=== PATIENT | male | born 1970 | race Caucasian/White ===

== ENCOUNTER 2018-09-27 09:03 | Emergency (ER) | payer SELFPAY ==
[~2018-09-27] VITALS: Ht 167.6 cm; Wt 93.9 kg
--- NOTE | 2018-09-27 09:19 | NUR ---
PT AMBULATES TO BED 10
[2018-09-27 09:20] VITALS: BP 144/88
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
--- NOTE | 2018-09-27 09:40 | NUR ---
Patient being evaluated by physician at bedside.
--- NOTE | 2018-09-27 09:42 | NUR ---
ER MD DONISOR EVALUATING PATIENT AT THIS TIME.
[2018-09-27] MEDS ORDERED: BACITRACIN OINT 500 UNITS/GM PKT TP ONE (09:50)
[2018-09-27 10:11] VITALS: BP 140/84
--- NOTE | 2018-09-27 10:11 | NUR ---
Patient discharged with v/s stable. Written and verbal after care instructions given and explained. Patient alert, oriented and verbalized understanding of instructions. Ambulatory with steady gait. All questions addressed prior to discharge. ID band removed. Patient advised to follow up with PMD. Rx of LOTRIMIN 1% TOPICAL CREAM, MOTRIN 800MG, MUPORICIN 2% TOPICAL given. Patient educated on indication of medication including possible reaction and side effects. Opportunity to ask questions provided and answered.
== END 2018-09-27 10:11 | disposition home or self-care (01) ==
LOC: MED 09:03
DX: B35.3 Tinea pedis (principal); T43.625A Adverse effect of amphetamines, initial encounter; L03.116 Cellulitis of left lower limb; R51 Headache; G44.40 Drug-induced headache, not elsewhere classified, not intractable; R03.0 Elevated blood-pressure reading, without diagnosis of hypertension; F17.200 Nicotine dependence, unspecified, uncomplicated; Y92.89 Other specified places as the place of occurrence of the external cause
CPT/HCPCS: 99283

== ENCOUNTER 2020-01-09 08:11 | Emergency (ER) | payer OTHER ==
[~2020-01-09] VITALS: Ht 167.6 cm; Wt 81.6 kg
[2020-01-09 08:14] VITALS: BP 160/82
--- NOTE | 2020-01-09 08:32 | NUR ---
49 YO M C/O NON-PRODUCTIVE COUGH, SORE THROAT AND UPPER BACK PAIN X 2 DAYS. PT STATES 5/10 PRESSURE-LIKE BACK PAIN AGGRAVATED BY COUGHING. NO MEDS TAKEN. DENIES N/V/D, FEVER. VSS. PT WITH COARSE BREATH SOUNDS ON ALL LUNG GODDARD. PT POSITIONED IN BED COMFORTABLY. ERMD AWARE OF PT STATUS. DENIED PMH NO MEDS TAKEN NKA
--- NOTE | 2020-01-09 08:38 | NUR ---
Dr. Benitez is evaluating the patient at bedside.
[2020-01-09] MEDS ORDERED: predniSONE 20 MG TAB PO ONE (08:45)
[2020-01-09] MEDS ORDERED: ALBUTEROL SULFATE/IPRATROPIU 3 ML SOL IH ONE (08:45)
--- NOTE | 2020-01-09 09:01 | NUR ---
Breathing treatment administered by respiratory therapist at bedside.
[2020-01-09 10:23] VITALS: BP 160/82
--- NOTE | 2020-01-09 10:24 | NUR ---
Patient discharged with v/s stable. Written and verbal after care instructions given and explained. Patient alert, oriented and verbalized understanding of instructions. Ambulatory with steady gait. All questions addressed prior to discharge. ID band removed. Patient advised to follow up with PMD. Rx of TESSALON, PREDNISONE, ALBUTEROL given. Patient educated on indication of medication including possible reaction and side effects. Opportunity to ask questions provided and answered.
== END 2020-01-09 10:24 | disposition home or self-care (01) ==
LOC: MED 08:11
DX: J20.9 Acute bronchitis, unspecified (principal); L85.3 Xerosis cutis
CPT/HCPCS: 71045; 93005; 94640; 99283; J7512; J7620; Q0092; 99284